=== PATIENT | female | born 1975 | race Two or more races ===

== ENCOUNTER 2018-09-15 09:46 | Day surgery (SDC) | payer OTHER ==
[~2018-09-15] VITALS: Ht 210.8 cm; Wt 81.0 kg
[~2018-09-15 09:46] MED LIST: BUPIVACAINE-EPI 0.25%-1:200000 MPF 30 ML VIAL. ONE; HYDROmorphone 2 MG/ML VIAL IV PRN; IV RINGERS,LACTATED 1000ML 1,000 ML IV SCH; MORPHINE SULFATE 2 MG/ML VIAL. IV PRN; ONDANSETRON PF 4 MG/2 ML VIAL. IV PRN; PROCHLORPERAZINE 10 MG/2 ML VIAL. IV PRN; fentaNYL PF VIAL 100 MCG/2 ML VIAL IV PRN
[2018-09-15] MEDS ORDERED: SEVOFLURANE 61 TO 120 MINUTES. IH ONE (09:50)
[2018-09-15] MEDS ORDERED: MIDAZOLAM HCL/PF 2 MG/2 ML VIAL. ONE (09:50)
[2018-09-15] MEDS ORDERED: DEXAMETHASONE SOD PHOS 4 MG/ML VIAL ONE ×2 (09:52)
[2018-09-15] MEDS ORDERED: KETOROLAC 30 MG/ML INJ FOR OR. INJ ONE (09:52)
[2018-09-15] MEDS ORDERED: ONDANSETRON PF 4 MG/2 ML VIAL. ONE (09:52)
[2018-09-15] MEDS ORDERED: PROPOFOL 20 ML IV ONE (09:52)
[2018-09-15] MEDS ORDERED: LIDOCAINE 2% PF 5 ML VIAL. ONE (09:52)
[2018-09-15] MEDS ORDERED: ceFAZolin 2GM PREMIX 2 GM/50 ML BAG IV ONE (10:00)
[2018-09-15] MEDS ORDERED: ACETAMINOPHEN 500 MG TABLET PO ONE ×2 (10:28→11:15)
--- NOTE | 2018-09-15 11:47 | PDOC4 ---
Operative Note Operative Note Date: 09/15/2018 Preoperative diagnosis: Left breast mass Postoperative diagnosis: Same Procedure: Excisional left breast biopsy Surgeon: Phong Specimen: Left breast mass Dictation: Patient is 43-year-old female who is found to have an enlarging mass in the left breast by mammogram and comparisons to a year ago procedure of excisional biopsy was explained to the patient in detail risk benefits were also discussed including bleeding infection alternatives to this procedure also discussed with patient is seemed to understand and gave both verbal and written consent to have the procedure performed. Patient was taken to the operating room placed in supine position general anesthesia was initiated once patient was sleep and intubated her left chest was prepped and draped usual sterile fashion using ChloraPrep and area over the mass was injected with quarter percent Marcaine with epinephrine and incision was made with 15 blade scalpel was carried down through the subcutaneous tissue using electrocautery divided hemostasis the mass was completely excised with electrocautery and sharp dissection. The mass was then marked with suture with the short suture being superficial margin the lateral margin marked by long suture and the deep margin marked by 2 sutures. Wound was then irrigated and suctioned dry hemostasis was deemed to be appropriate and the wound was closed in 2 layers a deep layer running 3-0 Vicryl the skin was approximate for septic and a Monocryl Mastisol Steri-Strips and island dressing was applied. Patient was awakened and asked bated operating room taken to recovery in stable condition all sponge instrument needle counts listed as correct estimate blood loss 10 mL WALI ENAMORADO MD Sep 15, 2018 11:47
--- NOTE | 2018-09-15 11:48 | DISCH ---
DISCHARGE INSTRUCTIONS Condition on Discharge Condition on Discharge: Stable Activity After Discharge Activity Instructions for Disc: Avoid exertion Diet after Discharge Diet after Discharge: Regular Wound Incision Care Other wound/incision instructi: May shower in 24 hours Contacting the after DC Call your doctor for: If your condition worsens Follow-Up Follow up with: Dr. Enamorado in 2 weeks WALI ENAMORADO MD Sep 15, 2018 11:48
[2018-09-15 13:00] VITALS: BP 154/76
--- NOTE | 2018-09-18 18:06 | PATHOLOGY ---
[facility] Accession Number: [id number] . 01 Material submitted: . breast - LEFT BREAST MASS SHORT STITCH SUP LONG STITCH LAT DOUBLE STITCH DEEP. Modifiers: left . 01 Clinical history: . Left breast mass. . 02 Diagnosis: Breast tissue, left breast oriented excisional biopsy: - Fibroadenoma, measuring 2.4 cm in greatest dimension. See comment. LBQ/09/18/2018 . 02 Comment: Sections of the left breast mass oriented excisional biopsy reveal a fibroadenoma measuring 2.4 cm in greatest dimension. The fibroadenoma focally abuts the superior and anterior margins of excision. There is no evidence of malignancy. (JPM/db; 09/18/2018) . 02 Electronically signed: . Atul García MD, Pathologist NPI- [id number] . 01 Gross description: . Received in formalin labeled "Suki Rowley, left breast mass short stitch superficial long stitch lateral double stitch deep" is an oriented breast lumpectomy specimen weighing 28 g and measuring 6.5 cm from superior to inferior, 4.7 cm from medial to lateral, 3.2 cm from anterior to posterior. The specimen is inked as follows: superior-red, inferior-blue, anterior-green, posterior-black, lateral-orange, medial-yellow. The specimen is sectioned from superior to inferior into 12 slices. Within slices 1-4 is a carrillo-white encapsulated circumscribed mass measuring 2.4 x 2.0 x 1.7 cm. The mass measures to the margins as follows: Less than 0.1 cm to superior, 4.1 cm to inferior, less than 0.1 to anterior, less than 0.1 cm to posterior, less than 0.1 cm to lateral, and 1.0 cm to medial. A biopsy clip is not identified. The uninvolved breast parenchyma is 50% yellow and lobulated and 50% carrillo-white and fibrous. Heading Saw Operator sections of the specimen are submitted as follows: A1-A2 slice 1, superior margin, perpendicular sections A3-A4 slice 2 A5-A6 entire slice 3 A7-A8 entire slice 4 A9-A10 entire slice 12, inferior margin, perpendicular sections The specimen is removed from the patient at 1135 and placed in formalin at 1137 on September 15, 2018. [place] [address] September 17, 2018. ([facility] [place]; 09/17/2018) SYC/SYC . 02 Pathologist provided ICD-10: D24.2 . 02 CPT . 264471 Specimen Comment: A courtesy copy of this report has been sent to Specimen Comment: [phone]. Specimen Comment: Report sent to Performed at: 01 [facility] [address], [place] [id number] MD Micah Alfaro MD Phone: [phone] Performed at: 02 [facility] [address] [place], [place] [id number] MD Atul García MD Phone: [phone]
== END 2018-09-15 13:10 | disposition home or self-care (01) ==
LOC: SURG 09:46
PROVIDERS: ATTEND Surgery
DX: D24.2 Benign neoplasm of left breast (principal); F17.210 Nicotine dependence, cigarettes, uncomplicated; Z98.890 Other specified postprocedural states; Z72.89 Other problems related to lifestyle; Z88.1 Allergy status to other antibiotic agents
CPT/HCPCS: 19120; 81025; 88307; A7015; J0696; J1100; J1885; J2001; J2250; J2405; J2704